=== PATIENT | male | born 1995 | race African-American/Black ===

== ENCOUNTER 2016-08-27 23:42 | Emergency (ER) | payer SELFPAY ==
[~2016-08-27] VITALS: Ht 182.9 cm; Wt 74.0 kg
[2016-08-28] MEDS ORDERED: IBUPROFEN 800MG TABLET PO ONE (01:15)
[2016-08-28] MEDS ORDERED: CYCLOBENZAPRINE 10MG TABLET PO ONE (01:15)
[2016-08-28 02:34] LABS: CLARITY URINE CLEAR (CLEAR); COLOR URINE YELLOW (YELLOW); GLUCOSE URINE NEGATIVE (NEGATIVE); KETONES URINE NEGATIVE (NEGATIVE); LEUKOCYTE ESTERASE URINE NEGATIVE (NEGATIVE); NITRITE URINE NEGATIVE (NEGATIVE); OCCULT BLOOD URINE TRACE (NEGATIVE); PH URINE 6.5 (4.5-8.0); PROTEIN URINE NEGATIVE (NEGATIVE); SPECIFIC GRAVITY URINE 1.016 (1.005-1.030)
[2016-08-28 03:30] VITALS: BP 116/76
== END 2016-08-28 03:41 | disposition home or self-care (01) ==
LOC: ER 08-28
DX: S33.5XXA Sprain of ligaments of lumbar spine, initial encounter (principal); S13.9XXA Sprain of joints and ligaments of unspecified parts of neck, initial encounter; V43.62XA Car passenger injured in collision with other type car in traffic accident, initial encounter; Y93.89 Activity, other specified; Y92.488 Other paved roadways as the place of occurrence of the external cause
CPT/HCPCS: 81001; 99283